=== PATIENT | female | born 1945 | race Caucasian/White ===

== ENCOUNTER 2016-09-24 20:39 | Emergency (ER) | payer BC | END 2016-09-24 23:52 | disposition left against medical advice (07) | LOC: ER1 20:39 | DX: Z53.21 Procedure and treatment not carried out due to patient leaving prior to being seen by health care provider (principal) ==

== ENCOUNTER → 2016-09-25 | Outpatient (CLI) | payer MEDICARE, OTHER | LOC: KOH-I 14:41 | DX: S39.92XA Unspecified injury of lower back, initial encounter (principal); M47.814 Spondylosis without myelopathy or radiculopathy, thoracic region; M25.78 Osteophyte, vertebrae | CPT/HCPCS: 72070 ==

== ENCOUNTER → 2016-11-30 | Outpatient (CLI) | payer MEDICARE, OTHER | LOC: KOH-I 14:56 | DX: S39.92XA Unspecified injury of lower back, initial encounter (principal); M51.37 Other intervertebral disc degeneration, lumbosacral region | CPT/HCPCS: 72110 ==